=== PATIENT | female | born 1990 | race Asian ===

== ENCOUNTER 2019-03-30 12:34 | Inpatient (IN) | payer OTHER ==
[~2019-03-30] VITALS: Ht 154.9 cm; Wt 83.8 kg
[2019-03-30 13:35] LABS: Basophils # (auto) 0 uL; Basophils % (auto) 0.5 % (0.0-2.0); Eosinophils # (auto) 0.1 uL; Eosinophils % (auto) 0.8 % (0.0-7.0); Hematocrit 37.9 % (36.0-46.0); Hemoglobin 12.3 g/dL (12.2-16.2); Lymphocytes # (auto) 2.3 uL; Lymphocytes % (auto) 24.8 % (10.0-50.0); Mean Corpuscular Hemoglobin 26.7 pg (28.0-32.0); Mean Corpuscular Hgb Conc. 32.4 g/dL (32.0-36.0); Mean Corpuscular Volume 82.3 fL (80.0-100.0); Monocytes # (auto) 0.7 uL; Monocytes % (auto) 7.2 % (0.0-12.0); Neutrophils # (auto) 6.2 uL; Neutrophils % (auto) 66.7 % (37.0-80.0); Nucleated Red Blood Cells % 0.1 %; Platelet Count (auto) 314 10^3/uL (140-450); Red Blood Cells 4.61 10^6/uL (4.0-5.20); Red Cell Distribution Width 13.4 % (11.8-14.3); White Blood Cell 9.3 10^3/uL (4.4-10.8)
[2019-03-30] MEDS ORDERED: SODIUM CHLORIDE 0.9% 1,000 ML IV ONE (15:49)
[2019-03-30 16:15] LABS: Albumin 3.7 g/dL (3.4-5.0); BUN/Creatinine Ratio 15.1; Calcium 10.2 mg/dL (8.5-10.1); Potassium 4.5 mmol/L (3.5-5.1)
[2019-03-30 16:17] LABS: Bilirubin, Total 0.3 mg/dL (0.2-1.0); Total Protein 7.9 g/dL (6.4-8.2)
[2019-03-30 16:35] LABS: INR < 0.93 (0.9-1.15); Partial Thromboplastin Time 25.4 sec (23.64-32.05)
[2019-03-30] MEDS: LACTATED RINGER'S 1,000 ML IV SCH (17:39)
[2019-03-30 18:11] VITALS: BP 125/87
[2019-03-30] MEDS ORDERED: PREN-96 PO (18:33)
[2019-03-30] MEDS ORDERED: CHOL20009 PO (18:33)
--- NOTE | 2019-03-30 19:00 | NUR ---
MS admit from ER [facility] admitted to tele/MS room 207. AAOX4, NPO, breathing even unlabored, S1, S2, lungs clear erlinda to auscultation. Denied of abd pain at this time. IV to left AC intact/patent infusing with LR @ 125ml/hr. Patient oriented to Jareth Bass RN primary RN, unit, room, bed, and unit policies regarding patient care and visiting hours. Patient weighed by bedscale and encouraged to call if they need something. All questions and concerns addressed, patient verbalized understanding. Bed locked in the lowest position, call light within easy reach, will continue to monitor.
--- NOTE | 2019-03-30 19:20 | NUR ---
Opening Shift Note Received report from Jareth RN. Assumed care of patient, awake and alert. No S/S of distress/SOB or pain. Instructed on POC and to call for assist PRN, will continue to monitor for changes Q1hr and PRN.
[2019-03-30 20:00] VITALS: BP 117/71
[2019-03-30 22:00] VITALS: BP 117/71
[2019-03-31] MEDS: LACTATED RINGER'S 1,000 ML IV SCH ×2 (02:00→08:25)
[2019-03-31 05:00] VITALS: BP 107/62
[2019-03-31 08:46] VITALS: BP 108/76
[2019-03-31] MEDS: D5W/LACTATED RINGERS 1,000 ML IV SCH ×2 (09:17→16:39)
[2019-03-31 09:23] LABS: Basophils # (auto) 0 uL; Basophils % (auto) 0.4 % (0.0-2.0); Eosinophils # (auto) 0.1 uL; Eosinophils % (auto) 0.9 % (0.0-7.0); Lymphocytes # (auto) 2.8 uL; Lymphocytes % (auto) 27.7 % (10.0-50.0); Mean Corpuscular Hemoglobin 26.2 pg (28.0-32.0); Mean Corpuscular Hgb Conc. 31.6 g/dL (32.0-36.0); Mean Corpuscular Volume 82.9 fL (80.0-100.0); Monocytes # (auto) 0.5 uL; Neutrophils # (auto) 6.7 uL; Nucleated Red Blood Cells % 0.1 %; Platelet Count (auto) 297 10^3/uL (140-450); Red Blood Cells 4.59 10^6/uL (4.0-5.20); Red Cell Distribution Width 13.3 % (11.8-14.3); White Blood Cell 10.1 10^3/uL (4.4-10.8)
[2019-03-31 12:40] VITALS: BP 134/79
[2019-03-31 17:00] VITALS: BP 123/75
--- NOTE | 2019-03-31 18:19 | NUR ---
DR MART ROUNDED ON PT THIS AFTERNOON, LABS TO BE DRAWN IN AM AND POSSIBLE SURGERY. PT TO BE NPO PAST MIDNIGHT. PT VERBALIZED UNDERSTANDING, DENIES PAIN. AMBULATING IN HALLWAYS. WILL CONTINUE TO MONITOR.
--- NOTE | 2019-03-31 20:00 | NUR ---
OPENING NOTE RECEIVED REPORT FROM DAYSHIFT RN. ASSUMING ROLE OF CARE OF PATIENT AT THIS TIME. PATIENT SHOWING NO SIGN OF DISTRESS, SHORTNESS OF BREATH, AND PATIENT DENIES ANY PAIN AT THIS TIME. PATIENT EDUCATED ON PLAN OF CARE FOR THE NIGHT AND PATIENT VERBALIZED UNDERSTANDING. BED LOWERED, CALL LIGHT WITHIN REACH, AND PATIENT WILL BE ROUNDED ON EVERY HOUR AND NEEDED.
[2019-03-31 22:00] VITALS: BP 116/79
[2019-04-01] MEDS: D5W/LACTATED RINGERS 1,000 ML IV SCH ×3 (01:30→17:10)
[2019-04-01 05:00] VITALS: BP 110/60
[2019-04-01 05:20] LABS: Basophils # (auto) 0 uL; Basophils % (auto) 0.4 % (0.0-2.0); Eosinophils # (auto) 0.1 uL; Eosinophils % (auto) 1.2 % (0.0-7.0); Hematocrit 36.3 % (36.0-46.0); Hemoglobin 11.8 g/dL (12.2-16.2); Lymphocytes % (auto) 26.9 % (10.0-50.0); Mean Corpuscular Hgb Conc. 32.6 g/dL (32.0-36.0); Mean Corpuscular Volume 82.9 fL (80.0-100.0); Monocytes # (auto) 0.7 uL; Monocytes % (auto) 6.6 % (0.0-12.0); Neutrophils # (auto) 7.3 uL; Neutrophils % (auto) 64.9 % (37.0-80.0); Platelet Count (auto) 291 10^3/uL (140-450); Red Blood Cells 4.37 10^6/uL (4.0-5.20); Red Cell Distribution Width 13.1 % (11.8-14.3); White Blood Cell 11.3 10^3/uL (4.4-10.8)
[2019-04-01 06:24] LABS: INR 0.95 (0.9-1.15)
[2019-04-01 09:00] VITALS: BP 114/63
--- NOTE | 2019-04-01 11:18 | NUR ---
PT TO OR AT THIS TIME VIA BED.
[2019-04-01] MEDS ORDERED: ceFAZolin 1GM/50ML 50 ML IV ONE (11:54)
[2019-04-01] MEDS ORDERED: LIDOCAINE 1% (LOCAL ANESTH.) PF 5ml SDV ONE (11:56)
[2019-04-01] MEDS ORDERED: SUCCINYLCHOLINE CHLORIDE 20 MG/ML 10ML VIAL IV ONE (11:56)
[2019-04-01] MEDS ORDERED: METOCLOPRAMIDE HCL 5MG/ml INJ 2ml VIAL ONE (12:07)
[2019-04-01] MEDS ORDERED: MIDAZOLAM HCL 1MG/1ML-2 ML VIAL ONE (12:07)
[2019-04-01] MEDS ORDERED: ROCURONIUM 10MG/ML 10ML VIAL IV ONE (12:08)
[2019-04-01] MEDS ORDERED: PROPOFOL 10 MG/ML 20 ML IV ONE (12:09)
[2019-04-01] MEDS ORDERED: fentaNYL CITRATE 100 MCG/2 ML VL ONE (12:21)
[2019-04-01] MEDS ORDERED: ONDANSETRON HCL 4 MG/2 ML VIAL IV PRN ×2 (12:30→14:30)
[2019-04-01] MEDS ORDERED: NALOXONE HCL 0.4 MG/ML VIAL IV PRN (12:30)
[2019-04-01] MEDS ORDERED: HYDROmorphone HCL 2 MG/ML VL IV PRN (12:30)
[2019-04-01 13:00] VITALS: BP 129/74
[2019-04-01] MEDS ORDERED: GLYCOPYRROLATE 0.2 MG/ML 1ML VIAL ONE (13:34)
[2019-04-01] MEDS ORDERED: NEOSTIGMINE 1 MG/ML INJ (10mg/10ML VIAL) ONE (13:34)
[2019-04-01] MEDS: HYDROmorphone HCL 2 MG/ML VL IV PRN ×4 (14:19→18:33)
[2019-04-01] MEDS ORDERED: ACETAMINOPHEN IV 100 ML IV ONE (14:30)
[2019-04-01 15:30] VITALS: BP 113/75
--- NOTE | 2019-04-01 16:42 | NUR ---
PT RETURNED TO FLOOR FROM PACU AT APPROX. 1500. A/O X 4. VSS. DENIES PAIN. STERI STRIPS TO ABD LAP SITES INTACT. MONITORING CLOSELY.
[2019-04-01 17:19] VITALS: BP 115/59
--- NOTE | 2019-04-01 19:19 | NUR ---
LOU CATHETER REMOVED AT 1814. REPORT PASSED ON TO TEMPORARY RECEPTIONIST NURSE.
--- NOTE | 2019-04-01 19:50 | NUR ---
Opening Shift Note Assumed care of patient, awake and alert, oriented x 4. On room air with even and unlabored respirations, no S/S of distress or SOB. Patient is s/p laparoscopic left salpingectomy, laparoscopic incisions to medial umbilicus, lower medial abd, and left lower abd with steri strips clean, dry and intact. Active bowel sounds, patient reports burping, abd soft and nontender upon palpation. Abd binder on. Ambulating independently with steady gait to toilet. Turns independently in bed. IV to right forearm intact but patient report pain and tenderness, no redness noted, site is puffy, IV discontinued with catheter fully intact and pressure dressing applied. Educated patient on indication for IS, instructed and demonstrated how to use, patient verbalized understanding and returned demonstration with proper use of 1500ml of inspire volume. Bed low locked position with side rails up x 2 and call light within reach. Instructed on POC and to call for assist PRN, will continue to monitor for changes Q1hr and PRN.
--- NOTE | 2019-04-01 20:35 | NUR ---
IV insertion IV access obtained, via clean sterile technique by inserting 22 gauge catheter at right hand after 1 attempt(s). IV secured properly. No trauma to site. Patient tolerated well. NOTE:
[2019-04-01 22:00] VITALS: BP 115/76
[2019-04-02] MEDS: D5W/LACTATED RINGERS 1,000 ML IV SCH ×2 (02:25→14:43)
[2019-04-02 05:00] VITALS: BP 110/75
[2019-04-02 05:05] LABS: Basophils # (auto) 0 uL; Eosinophils # (auto) 0 uL; Eosinophils % (auto) 0.1 % (0.0-7.0); Hemoglobin 11.5 g/dL (12.2-16.2); Mean Corpuscular Hemoglobin 26.8 pg (28.0-32.0); Neutrophils # (auto) 14.4 uL; Red Cell Distribution Width 13.4 % (11.8-14.3)
[2019-04-02 05:08] LABS: Hematocrit 35.4 % (36.0-46.0); Lymphocytes # (auto) 2.5 uL; Lymphocytes % (auto) 14.1 % (10.0-50.0); Mean Corpuscular Hgb Conc. 32.5 g/dL (32.0-36.0); Mean Corpuscular Volume 82.3 fL (80.0-100.0); Monocytes # (auto) 0.8 uL; Monocytes % (auto) 4.4 % (0.0-12.0); Neutrophils % (auto) 81.4 % (37.0-80.0); Platelet Count (auto) 322 10^3/uL (140-450); White Blood Cell 17.7 10^3/uL (4.4-10.8)
--- NOTE | 2019-04-02 07:02 | NUR ---
Closing note patient resting in bed with even and unlabored respirations, no s/s of distress. Abd binder on. IS at bedside. Endorsed care to day shift RN.
[2019-04-02 08:00] VITALS: BP 117/79
--- NOTE | 2019-04-02 08:30 | NUR ---
PATIENT ROUNDS PATIENT ROUNDS COMPLETED. PATIENT SLEEPING, BREATHING CLEAR AND UNLABORED. NO SIGNS OF DISTRESS AT THIS TIME. BED IN LOCKED, LOWEST POSITION, CALL LIGHT WITHIN REACH. Signed: 04/02/19 at 940 by HANNAH LOPEZ SN <Co-Signature Required> Co-Signed: 04/02/19 at 940 by Arthur Elmore RN
[2019-04-02 09:00] VITALS: BP 117/79
[2019-04-02] MEDS: PIPERACILLIN-TAZOB 3.375GM 100 ML IV SCH ×2 (10:11→14:00)
--- NOTE | 2019-04-02 11:00 | NUR ---
PATIENT ROUNDS/MD AT BEDSIDE DR MART AT BEDSIDE. PER MD ORDERS, D/C PATIENT WITH ANTIBIOTICS AND F/U IN 2 WEEKS. Signed: 04/02/19 at 1553 by HANNAH LOPEZ SN <Co-Signature Required> Co-Signed: 04/02/19 at 1553 by Arthur Elmore RN
[2019-04-02] MEDS: HYDROmorphone HCL 2 MG/ML VL IV PRN (12:35)
[2019-04-02 13:00] VITALS: BP 119/68
--- NOTE | 2019-04-02 15:21 | NUR ---
assessment Patient is a 28 year old female who is alert and oriented. Patients cognitive abilities are intact. Prior to admission patient lived home with family and functioned independently. Patient informed me she is able to care for her own ADLs. Per patient she will return home to her prior living arrangements post discharge and family will transport her home. Patient has been admitted for tubal . Patient is dealing with her diagnosis well. Patient has no post discharge needs. Patient has good family support. I informed patient she has a right to speak to a aids social worker regarding all care. I informed patient she has a right to participate in any and all discharge planning. Patient does not have a POA and advanced directive. I have offered patient information on POA and advanced directives. I informed the patient the advantages and benefits of having an Advanced Directive. Patient verbalized understanding and agreed to discharge plan. Addendum: 04/02/19 at 1523 by Luisa WILLIAM Amended: Links added.
--- NOTE | 2019-04-02 15:50 | NUR ---
PATIENT DISCHARGED Discharge instructions given as ordered. Encourage to follow up with PMD as instructed. All questions and concerns addressed. Patient verbalized understanding. IV removed with catheter intact, pressure dressing applied. Patient ambulated with all personal belongings, accompanied by self. No distress noted at time of departure. Signed: 04/02/19 at 1553 by HANNAH LOPEZ SN <Co-Signature Required> Co-Signed: 04/02/19 at 1553 by Arthur Elmore RN
== END 2019-04-02 15:18 | disposition home or self-care (01) | DRG 545 ==
LOC: ER 12:42 → OVERFLOW 12:43 → CENTRAL 18:24
PROVIDERS: ADMIT Specialist; ATTEND Specialist
PROC: 10T24ZZ Resection of Products of Conception, Ectopic, Percutaneous Endoscopic Approach (ICD-10-PCS; 2019-04-01)
PROC: 0U914ZZ Drainage of Left Ovary, Percutaneous Endoscopic Approach (ICD-10-PCS; 2019-04-01)
PROC: 0UN14ZZ Release Left Ovary, Percutaneous Endoscopic Approach (ICD-10-PCS; 2019-04-01)
PROC: 0UB64ZZ Excision of Left Fallopian Tube, Percutaneous Endoscopic Approach (ICD-10-PCS; principal; 2019-04-01 12:04)
DX: O00.102 Left tubal pregnancy without intrauterine pregnancy (principal); N83.201 Unspecified ovarian cyst, right side; N83.202 Unspecified ovarian cyst, left side; Z88.8 Allergy status to other drugs, medicaments and biological substances; Z82.49 Family history of ischemic heart disease and other diseases of the circulatory system; Z82.5 Family history of asthma and other chronic lower respiratory diseases
CPT/HCPCS: 36415; 76801; 80053; 84702; 85025; 85610; 85730; 86850; 86900; 86901; 94761; 96360; 96361; G0378; J0131; J0330; J0690; J2250; J2405; J2543; J2704

== ENCOUNTER 2020-07-01 15:24 | Emergency (ER) | payer MEDICAID, OTHER ==
[~2020-07-01] VITALS: Ht 154.9 cm; Wt 83.0 kg
[~2020-07-01 15:24] MED LIST: CHOL20009 PO; PREN-96 PO
[2020-07-01 16:48] LABS: Urine Bacteria FEW /hpf (None Seen); Urine Blood 1+ /uL (Negative); Urine Specific Gravity 1.005 (1.001-1.035); Urine WBC <1 /hpf (0 - 5)
[2020-07-01 17:03] LABS: Alcohol, Urine < 3.0 mg/dL (0-10); Amphetamine Screen, Urine NEGATIVE (NEGATIVE); Barbiturate Scree,Urine NEGATIVE (NEGATIVE); Benzodiazephine Screen, Urine NEGATIVE (NEGATIVE); Cannabinoid Screen, Urine NEGATIVE (NEGATIVE); Cocaine Screen, Urine NEGATIVE (NEGATIVE); Opiate Scree,Urine NEGATIVE (NEGATIVE); Phencyclidine Screen, Urine NEGATIVE (NEGATIVE)
[2020-07-01 21:26] LABS: Basophils # (auto) 0.1 10 ^3/uL (0-0.2); Basophils % (auto) 0.4 % (0.0-2.0); Eosinophils # (auto) 0 10 ^3/uL (0-0.8); Eosinophils % (auto) 0.2 % (0.0-7.0); Hematocrit 37.9 % (36.0-46.0); Hemoglobin 12.1 g/dL (12.2-16.2); Lymphocytes # (auto) 2.5 10 ^3/uL (0.4-5.4); Lymphocytes % (auto) 15.8 % (10.0-50.0); Mean Corpuscular Hemoglobin 26.3 pg (28.0-32.0); Mean Corpuscular Hgb Conc. 31.9 g/dL (32.0-36.0); Mean Corpuscular Volume 82.4 fL (80.0-100.0); Monocytes # (auto) 0.7 10 ^3/uL (0-1.3); Monocytes % (auto) 4.7 % (0.0-12.0); Neutrophils # (auto) 12.6 10 ^3/uL (1.6-8.6); Neutrophils % (auto) 78.9 % (37.0-80.0); Nucleated Red Blood Cells % 0.1 %; Platelet Count (auto) 416 10^3/uL (140-450); Red Blood Cells 4.59 10^6/uL (4.0-5.20); Red Cell Distribution Width 13.7 % (11.8-14.3); White Blood Cell 15.9 10^3/uL (4.4-10.8)
[2020-07-01 21:48] LABS: Albumin 4.1 g/dL (3.4-5.0); Calcium 8.9 mg/dL (8.5-10.1); Potassium 3.6 mmol/L (3.5-5.1)
[2020-07-01 21:51] LABS: BUN/Creatinine Ratio 12.1; Bilirubin, Total 0.5 mg/dL (0.2-1.0); Total Protein 7.8 g/dL (6.4-8.2)
[2020-07-02] MEDS ORDERED: ACETAMINOPHEN 325 MG TAB PO ONE
[2020-07-02 00:09] VITALS: BP 145/99
== END 2020-07-02 00:08 | disposition home or self-care (01) ==
LOC: ER 15:25
DX: O03.9 Complete or unspecified spontaneous abortion without complication (principal); D64.9 Anemia, unspecified
CPT/HCPCS: 36415; 76801; 80053; 80307; 81001; 84702; 85025

== ENCOUNTER → 2025-04-08 | Outpatient (CLI) | payer MEDICAID ==
[2025-04-08 06:44] LABS: Hematocrit 41.0 % (36.0-46.0); Hemoglobin 13.8 g/dL (12.2-16.2); Mean Corpuscular Hemoglobin 27.3 pg (28.0-32.0); Mean Corpuscular Volume 81.1 fL (80.0-100.0); Nucleated Red Blood Cells % 0.0 %
[2025-04-08 07:21] LABS: Alanine Aminotransferase 32 U/L (7-40); Alkaline Phosphatase 81 U/L (46-116); Anion Gap 11 (5-15); BUN/Creatinine Ratio 12.0 (10.0-20.0); Bilirubin, Total 0.5 mg/dL (0.2-1.0); Calcium 9.4 mg/dL (8.7-10.4); Carbon Dioxide 23 mmol/L (20-31); Chloride 104 mmol/L (98-107); Glucose 96 mg/dL (74-106); Potassium 3.9 mmol/L (3.5-5.1); Sodium 138 mmol/L (136-145)
[2025-04-08 07:24] LABS: Thyroid Stimulating Hormone 2.11 uIU/mL (0.55-4.78)
[2025-04-08 07:25] LABS: Follicle Stimulating Hormone 1.07 IU/L (SEE BELOW)
[2025-04-08 07:26] LABS: Albumin 4.9 g/dL (3.2-4.8); Beta HCG, Quantitative < 0.0 mIU/mL (1.5-4.2); Blood Urea Nitrogen 9 mg/dL (9-23); Free T4 (Free Thyroxine) 1.17 ng/dL (0.89-1.76); Total Protein 8.4 g/dL (5.7-8.2)
[2025-04-10 01:07] LABS: Chlamydia Trachomatis, NAA Negative (Negative); Neisseria gonorrhoeae, NAA Negative (Negative)
== END | disposition home or self-care (01) ==
LOC: LAB 06:21
DX: N93.9 Abnormal uterine and vaginal bleeding, unspecified (principal); Z11.3 Encounter for screening for infections with a predominantly sexual mode of transmission
CPT/HCPCS: 36415; 80053; 82626; 82670; 83001; 83002; 83525; 84146; 84270; 84402; 84403; 84439; 84443; 84702; 85025; 86703; 86780; 87086

== ENCOUNTER 2025-06-30 08:39 | Outpatient (CLI) | payer MEDICAID ==
[2025-06-30 08:57] LABS: Hematocrit 41.3 % (36.0-46.0); Hemoglobin 13.5 g/dL (12.2-16.2); Mean Corpuscular Hemoglobin 26.6 pg (28.0-32.0); Mean Corpuscular Volume 81.3 fL (80.0-100.0); Nucleated Red Blood Cells % 0.1 %
[2025-06-30 09:45] LABS: Alanine Aminotransferase 27 U/L (7-40); Alkaline Phosphatase 78 U/L (46-116); Anion Gap 10 (5-15); BUN/Creatinine Ratio 12.7 (10.0-20.0); Blood Urea Nitrogen 10 mg/dL (9-23); Calcium 9.9 mg/dL (8.7-10.4); Carbon Dioxide 27 mmol/L (20-31); Chloride 102 mmol/L (98-107); Glucose 95 mg/dL (74-106); Potassium 4.7 mmol/L (3.5-5.1); Sodium 139 mmol/L (136-145)
[2025-06-30 09:46] LABS: Bilirubin, Total 0.4 mg/dL (0.2-1.0); HDL Cholesterol 45 mg/dL (40-59)
[2025-06-30 09:48] LABS: Albumin 4.9 g/dL (3.2-4.8); Cholesterol 203 mg/dL (< 200); Total Protein 8.3 g/dL (5.7-8.2); Triglycerides 185 mg/dL (< 150)
== END 2025-06-30 17:00 | disposition home or self-care (01) ==
LOC: LAB 08:39
DX: R94.8 Abnormal results of function studies of other organs and systems (principal); Z79.899 Other long term (current) drug therapy
CPT/HCPCS: 36415; 80053; 80061; 85025